=== PATIENT | male | born 1945 ===

== ENCOUNTER 2024-03-22 13:43 | Inpatient (IN) | payer MEDICARE, BC ==
[~2024-03-22] VITALS: Ht 170.2 cm; Wt 73.2 kg
[2024-03-22] MEDS ORDERED: Ondansetron 4 MG/2 ML VIAL IV PRN (15:15)
[2024-03-22] MEDS ORDERED: ASPIRIN 81M81 MG/TA2 PO (15:17)
[2024-03-22] MEDS ORDERED: BUSPAR 30MG30 MG/TAB PO (15:18)
[2024-03-22] MEDS ORDERED: THEO-24 20200 MG/CAP PO (15:19)
[2024-03-22] MEDS ORDERED: ZOCOR 20MG20 MG PO (15:20)
[2024-03-22] MEDS ORDERED: GLUCOPHAGE XR500 M1 PO (15:20)
[2024-03-22] MEDS ORDERED: LIORESAL20 MG PO (15:21)
--- NOTE | 2024-03-22 15:24 | NUR ---
MED REC COMPLETED WITH PAPERWORK PROVIDED FROM [facility], PATIENT REPORTS [facility]
[2024-03-22] MEDS ORDERED: Morphine 4 MG/ML VIAL IV PRN (15:30)
--- NOTE | 2024-03-22 15:55 | NUR ---
PATIENT ARRIVED TO MEDICAL FLOOR AT APPROX 1435. PATIENT IS NOT ALERT NOR ORIENTED, AND SPEECH IS UNCLEAR. INTAKE ASSESSMENT COMPLETE, BUT PATIENT IS POOR HISTORIAN. UNABLE TO TELL THIS RN WHAT MEDICATIONS HE TAKES OR WHY HE WENT TO THE HOSPITAL. NO SKIN ISSUES NOTED. ABDOMEN IS ROUND, AND APPEARS DISTENDED ON THE LEFT SIDE. BS HYPOACTIVE X4 AND COMPLAINS OF PAIN UPON PALPATION. PATIENT CHEWS TOBACCO, AND WILL ASK FOR IT. RN EDUCATED PATIENT THAT TOBACCO IS NOT ALLOWED IN THE FACILITY. PATIENT NPO. IV TO LFA PATENT, CDI. CHANGED INTO YELLOW GOWN, FALL PREC IN PLACE, CAR BLOCKER NOTIFIED. CALL LIGHT WITHIN REACH.
--- NOTE | 2024-03-22 16:01 | NUR ---
THIS RN SPOKE WITH PT/OT ABOUT PATIENT AND ASKED THEM TO EVALUATE PATIENT. AFTER EVAL, THEY STATED PATIENT IS INCONTIENT, A MAX 2 ASSIST, AND UNABLE TO COMPREHEND WHAT THEY ARE ASKING HIM TO DO. PATIENT WILL BE BEDREST AT THIS TIME.
[2024-03-22 16:21] VITALS: BP 152/90; PULSE 78; TEMP 98.1
[2024-03-22 16:26] VITALS: BP_SYST 152
[2024-03-22] MEDS ORDERED: Dextrose 50% Water 25 GM/50 ML SYRINGE IV PRN (16:30)
[2024-03-22] MEDS ORDERED: Glucagon 1 MG VIAL IM PRN (16:30)
[2024-03-22] MEDS ORDERED: Dextrose (Glucose) 15 GM (4 x 3.75 GM) Chewable TABLET PACK PO PRN (16:30)
[2024-03-22] MEDS ORDERED: Pantoprazole 40 MG in NS 10 ML IV SCH (16:32)
--- NOTE | 2024-03-22 16:34 | NUR ---
THIS RN WAS NOTIFIED BY PCT THAT PATIENT IS TRYING TO GET UP TO "GET THE MAN OFF THE END OF HIS BED," AND TELLING THE PCT TO "STICK YOUR HEAD IN THAT." PHYSICIAN AWARE.
[2024-03-22 17:05] LABS: MEAN CELL VOLUME 93 fl (80.0-100.0); MEAN CORPUSCULAR HEMOGLOBIN 31 pg (27-31); MEAN CORPUSCULAR HGB CONC 34 g/dl (33.0-37.0); MEAN PLATELET VOLUME 9.8 fl (7.4-10.4); PLATELET COUNT 369 K/mm3 (130-400); RED BLOOD COUNT 3.82 M/mm3 (4.20-5.60); REDCELL DISTRIBUTION WIDTH-CV 14.5 % (11.5-14.5)
[2024-03-22 17:08] LABS: HEMATOCRIT 35.4 % (42.0-52.0)
[2024-03-22] MEDS ORDERED: NS 1,000 ML IV SCH (17:15)
[2024-03-22 17:23] LABS: ALBUMIN 2.2 g/dL (3.4-4.8); BILIRUBIN,TOTAL 0.7 mg/dL (0.2-1.2); CALCIUM 9.2 mg/dL (8.4-10.2); CREATININE, serum 1.46 mg/dL (0.72-1.25); POTASSIUM 4.4 mEq/L (3.5-4.5); TOTAL PROTEIN 6.3 g/dl (6.2-8.1)
[2024-03-22] MEDS ORDERED: Haloperidol Lactate 5 MG/ML VIAL IV PRN (17:30)
[2024-03-22] MEDS ORDERED: D5W 1,000 ML IV SCH (17:30)
--- NOTE | 2024-03-22 17:51 | NUR ---
Contacted by primary nurse, patient becoming aggitated and aggressive with staff. Patient did get ahold of [employer] LATHE TENDER. Prn Hadol given due to patient aggression to staff
--- NOTE | 2024-03-22 18:14 | NUR ---
PATIENT REMOVED PENIS FROM BRIEF AND WAS FOUND INCONTINENT OF URINE. PCT ASSISTED THIS RN TO PROVIDE HYGEINE. PATIENT BEGAN TO HIT AND PUNCH PCT DURING BED CHANGE. PRN HALDOL ADMINISTERED. BARRIER SPRAY AND CREAM APPLIED TO BUTTOCKS. FALL PREC IN PLACE. CALL LIGHT WITHIN REACH, PATIENT STILL DISORIENTED.
[2024-03-22 18:29] LABS: BAND 17 % (0-10); LYMPHOCYTE 8 % (20.0-51.0); NEUTROPHILS 65 % (42.0-75.2)
--- NOTE | 2024-03-22 19:29 | NUR ---
PT IS IN BED AT THIS TIME. CALL LIGHT IS WITHIN REACH.
[2024-03-22] MEDS ORDERED: Insulin Lispro (HumaLOG) SQ SCH (20:00)
[2024-03-22 20:26] VITALS: BP 166/93; PULSE 116; TEMP 98.6
--- NOTE | 2024-03-22 20:30 | NUR ---
CALLED JOSÉ FLYNN OF [facility]. TOLD TO TAKE TEMP AND SEE IF PT IS IN PAIN. PT HAS HAD PREVIOUS HALIDOL.
[2024-03-22 21:00] VITALS: BP_SYST 157
[2024-03-22] MEDS ORDERED: Heparin 5,000 UNITS/ML 1 ML VIAL SQ SCH (21:00)
[2024-03-22 21:38] VITALS: BP 157/79; PULSE 118
[2024-03-22 23:34] VITALS: BP 165/93; PULSE 118; TEMP 99.2
[2024-03-22] MEDS ORDERED: Metoprolol Tartrate 5 MG/5 ML VIAL IV ONE (23:45)
[2024-03-23] VITALS (15 sets, daily range): BP systolic 128–163; BP diastolic 71–81; PULSE 87–116; TEMP 97.7–101
--- NOTE | 2024-03-23 04:11 | NUR ---
JOSÉ FLYNN NOTIFIED OF TEMP. COVERS TAKEN OFF OF PT AND RECTAL TYLENOL GIVEN PER EMAR. PT PACKED WITH ICE AND COLD CLOTHS ON FOREHEAD AND BEHIND NECK.
--- NOTE | 2024-03-23 05:06 | NUR ---
ASSESSMENT COMPLETED EARLIER. MEDICATIONS WERE ADMINISTERED PER EMAR. SEE OTHER NOTES FOR UPDATES THROUGHOUT NIGHT. CALL LIGHT IS WITHIN REACH.
[2024-03-23 07:33] LABS: HEMOGLOBIN 12.1 g/dl (13.5-18.0); MEAN CELL VOLUME 93 fl (80.0-100.0); MEAN CORPUSCULAR HEMOGLOBIN 31 pg (27-31); MEAN CORPUSCULAR HGB CONC 34 g/dl (33.0-37.0); MEAN PLATELET VOLUME 10.1 fl (7.4-10.4); PLATELET COUNT 367 K/mm3 (130-400); RED BLOOD COUNT 3.86 M/mm3 (4.20-5.60); REDCELL DISTRIBUTION WIDTH-CV 14.7 % (11.5-14.5)
[2024-03-23 07:38] LABS: HEMATOCRIT 35.8 % (42.0-52.0)
[2024-03-23 07:54] LABS: ALBUMIN 2.1 g/dL (3.4-4.8); BILIRUBIN,TOTAL 0.9 mg/dL (0.2-1.2); CALCIUM 8.8 mg/dL (8.4-10.2); CREATININE, serum 1.58 mg/dL (0.72-1.25); POTASSIUM 4.2 mEq/L (3.5-4.5); TOTAL PROTEIN 6.2 g/dl (6.2-8.1)
--- NOTE | 2024-03-23 08:00 | NUR ---
PATIENT IS ORIENTED TO PERSON ONLY, NOTED CONFUSION AND DIFFICULTY UNDERSTANDING HIS MUMBLED SPEECH. SISTER CONFIRMED PATIENT HAS POOR SPEECH THAT IS MUMBLED BUT IS MORE CONFUSED THAN HIS BASELINE. SISTER GIVEN PATIENT STATUS UPDATE AND AWARE THAT PATIENT WILL GO DOWN FOR AN MRI & CT SCAN TODAY WELL POSSIBLE SURGERY LATER TODAY. NPO. ORAL SUCTION PRN. IV FLUIDS & IV ABX INFUSING VIA PUMP INTO LEFT FORARM IV. TACHY HR IN THE LOW 100'S ON TELE. ALL OTHER VSS. OFFICE HELPER REPORTS A FEVER OF 101.0 OVER NIGHT AND INCREASED CONFUSION. AM BS WAS 100, NO SSI REQUIRED. 2 MAX ASSIST. PT/OT/ST CONSULTED. HEAD TO TOE ASSESSMENT COMPLETE. DNR STATUS. SCD'S TO BLE. STUDENT NURSE WORKING WITH PATIENT TODAY, SEE CHARTING. CALL LIGHT IN REACH. BED ALARM ON.
[2024-03-23 08:18] LABS: BAND 18 % (0-10); LYMPHOCYTE 7 % (20.0-51.0); NEUTROPHILS 67 % (42.0-75.2)
[2024-03-23 08:19] LABS: PLATELET ESTIMATE NORMAL (NORMAL); POIKILOCYTOSIS 1+
--- NOTE | 2024-03-23 10:52 | NUR ---
PRN HALDOL GIVEN FOR AGGITATION PRIOR TO MRI/CT SCAN. SEE ORDERS.
--- NOTE | 2024-03-23 11:04 | NUR ---
coffee plantation worker was notified patient has been confused and is difficult to understand when he speaks. SW requested assistance from R1 with assistance obtaining insurance information as patient is listed as self-pay. CURTIS contacted patient's sister, Cadence, P# [phone], to discuss discharge planning and complete assessment. Patient lives in [place], [place] by himself. PCP is Dr. Abad, Pharmacy is [facility]. Cadence reports patient has Medicare, BCBS and [place] for insurance. Cadence reports patient's billfold is at home, so they were unable to provide the insurance information. Cadence explained patient does not use any DME and has been independent with ADLS. Patient has also been independent with transporting himself to and from appointments. CURTIS explained PT,OT and ST would be working with patient and that will give a better idea if patient is going to need rehab prior to returning home. Cadence stated they were understanding that patient may need to go to a group home for rehab and their preference would be [facility]. SW will follow up with Cadence and patient with recommendations. CURTIS contacted patient's PCP office at the [facility]. CURTIS was able to obtain Medicare ID is [id number] and BCBS is [id number]. They did not have the VA information. They also provided penitentiary date is 11/23/2000. SW provide the above information to R1 to add to patient's chart. Discharge plan: Pending PT, OT and ST likely SNF
--- NOTE | 2024-03-23 11:23 | NUR ---
social group worker reviewed PT evaluation stating patient will likely need post acute rehab. SW met with patient and provided Medicare.gov list of options. Patient is hard to understand as he mumbles but when discussing SNF options and notifying him of what Cadence's option would be patient stated "I guess, I don't know where else I would go." SW reviewed a couple of other options but patient was heading down for a scan. CURTIS will fax referral to [facility] once OT and ST evaluations are in the system. Discharge plan: SNF
--- NOTE | 2024-03-23 11:25 | NUR ---
300ml of stacie clear urine per urinal x1. no complaints.
--- NOTE | 2024-03-23 11:40 | NUR ---
PATIENT GOING DOWN TO RADIOLOGY FOR MRI & CT SCAN. PLAN IS FOR SURGERY LATER TODAY. SEE ORDERS.
[2024-03-23] MEDS ORDERED: Iohexol 300 - 100 ML VIAL IV ONE (12:11)
--- NOTE | 2024-03-23 12:21 | NUR ---
PATIENT BACK IN ROOM FROM RADIOLOGY. PATIENT WOULD NOT DRINK THE ORAL CONTRAST BUT DID GET IV CONTRAST. MRI & CT IMAGES DONE.
[2024-03-23] MEDS ORDERED: LR 1,000 ML IV SCH (13:00)
--- NOTE | 2024-03-23 13:25 | NUR ---
PATIENT STILL VERY PHLEGMY, SEEMS UNABLE TO CLEAR HIS OWN THICK ORAL SECRETIONS. SUCTION PRN. ORAL CARES PROVIDED. PATIENT IS A LITTLE RESISTANT TO SOME ORAL CARES BUT ALLOWED STAFF TO USE SWABS & WATER A FEW TIMES & SUCTION. PATIENT STILL NPO FOR PENDING SURGERY. IV FLUIDS INFUSING VIA PUMP. PATIENT RESTING UP IN BED WITH CALL LIGHT IN REACH. AND BED ALARM ON.
--- NOTE | 2024-03-23 14:13 | NUR ---
OBTAINED CONSENT VIA PHONE WITH DIRECTOR AND SECOND WITNESS. CONSENTS ON CHART.
[2024-03-23] MEDS ORDERED: Succinylcholine PF 200 MG/10 ML SYRINGE IV ONE (15:07)
[2024-03-23] MEDS ORDERED: Lidocaine PF 2% (20 MG/ML) 5 ML VIAL ONE ×2 (15:08→15:26)
[2024-03-23] MEDS ORDERED: Rocuronium 50 MG/5 ML Multi-Dose VIAL ONE ×2 (15:08→17:34)
[2024-03-23] MEDS ORDERED: dexAMETHasone 10 MG/ML VIAL ONE (15:24)
--- NOTE | 2024-03-23 15:40 | NUR ---
PATIENT GOING DOWN TO SURGERY. NPO ALL DAY. IV FLUIDS TO GRAVITY. CONSENTS AND TICKET TO RIDE ON CHART. PATIENT GOING DOWN WITH OR STAFF VIA BED, PATIENT NOW OFF FLOOR.
[2024-03-23] MEDS ORDERED: NS 100 ML IV ONE (16:34)
[2024-03-23] MEDS ORDERED: Phenylephrine 10 MG/ML VIAL ONE (16:34)
[2024-03-23] MEDS ORDERED: fentaNYL 50 MCG/ML 2 ML VIAL ONE (17:16)
[2024-03-23] MEDS ORDERED: fentaNYL 100 ML IV SCH (18:30)
--- NOTE | 2024-03-23 18:30 | NUR ---
PATIENT GOING TO ICU POST-OP. CALLED REPORT TO ICU NURSE.
--- NOTE | 2024-03-23 19:00 | NUR ---
THIS NURSE RECIEVED REPORT FROM FREDERICK JACKSON. PATIENT IS SEEN IN BED. PATIENT IS CURRENTLY SEDATED, BUT OPENS HIS EYES TO VOICE. PATIENT HAS 2 PERIPHERAL LINES, LEFT WRIST AND RIGHT WRIST. PROPOFOL IS RUNNING AT 9.1 MLS/HR AND FENTANYL IS RUNNING AT 1.3 MLS/HR INTO THE R WRIST. PATIENT HAS A IVERSON IN PLACE, NO KINKS NOTED, DRAINING APPROPRIATELY AT THIS TIME. PATIENT'S VITAL SIGNS ARE WNL. BED IS IN LOW POSITION, WHEELS LOCKED, BED ALARM ON, AND CALL LIGHT WITHIN THE PATIENT'S REACH.
[2024-03-23 19:08] LABS: CALCIUM 8.4 mg/dL (8.4-10.2); CREATININE, serum 1.57 mg/dL (0.72-1.25); POTASSIUM 4.2 mEq/L (3.5-4.5)
[2024-03-23 21:35] LABS: ARTERIAL BLD GAS O2 SATURATION 98.1 % (92-100); ARTERIAL BLD GAS TCO2 CT 19.8; ARTERIAL BLOOD GAS BASE EXCESS -5.7 (-2-2); ARTERIAL BLOOD GAS HCO3 18.8 meq/L (22-26); ARTERIAL BLOOD GAS PCO2 33.6 mmHg (35-45); ARTERIAL BLOOD GAS PO2 108.2 mmHg (80-100); ARTERIAL BLOOD GAS pH 7.37 (7.35-7.45)
--- NOTE | 2024-03-23 22:07 | NUR ---
RT obtained ABG per order at 2130. After results obtained, this RT decreased the FiO2 to 30% based on the PaO2. Patient tolerated decrease in FiO2.
[2024-03-24] VITALS (69 sets, daily range): BP systolic 100–151; BP diastolic 58–72; PULSE 94–112; TEMP 97.7–99.6; O2SAT 88–100
[2024-03-24 00:51] LABS: CREATININE, serum 1.62 mg/dL (0.72-1.25); POTASSIUM 4.4 mEq/L (3.5-4.5)
[2024-03-24 04:51] LABS: HEMOGLOBIN 11.4 g/dl (13.5-18.0); MEAN CELL VOLUME 93 fl (80.0-100.0); MEAN CORPUSCULAR HEMOGLOBIN 31 pg (27-31); MEAN CORPUSCULAR HGB CONC 34 g/dl (33.0-37.0); MEAN PLATELET VOLUME 10.6 fl (7.4-10.4); PLATELET COUNT 346 K/mm3 (130-400); RED BLOOD COUNT 3.65 M/mm3 (4.20-5.60)
[2024-03-24 05:02] LABS: HEMATOCRIT 33.9 % (42.0-52.0)
[2024-03-24 05:04] LABS: ALBUMIN 1.6 g/dL (3.4-4.8); BILIRUBIN,TOTAL 0.6 mg/dL (0.2-1.2); CALCIUM 7.9 mg/dL (8.4-10.2); CREATININE, serum 1.71 mg/dL (0.72-1.25); POTASSIUM 4.4 mEq/L (3.5-4.5); TOTAL PROTEIN 5.3 g/dl (6.2-8.1)
--- NOTE | 2024-03-24 05:29 | NUR ---
Due to low PaO2 on AM ABG, this RT increased the FiO2 to 35% at this time.
[2024-03-24 06:01] LABS: BAND 11 % (0-10); LYMPHOCYTE 3 % (20.0-51.0); NEUTROPHILS 84 % (42.0-75.2); PLATELET ESTIMATE NORMAL (NORMAL)
[2024-03-24 06:32] LABS: ARTERIAL BLD GAS O2 SATURATION 91.6 % (92-100); ARTERIAL BLD GAS TCO2 CT 20.4; ARTERIAL BLOOD GAS BASE EXCESS -5.3 (-2-2); ARTERIAL BLOOD GAS HCO3 19.4 meq/L (22-26); ARTERIAL BLOOD GAS PO2 63.8 mmHg (80-100); ARTERIAL BLOOD GAS pH 7.36 (7.35-7.45)
[2024-03-24 09:21] LABS: ALBUMIN 1.7 g/dL (3.4-4.8); BILIRUBIN,TOTAL 0.5 mg/dL (0.2-1.2); CALCIUM 8.2 mg/dL (8.4-10.2); CREATININE, serum 1.95 mg/dL (0.72-1.25); POTASSIUM 4.3 mEq/L (3.5-4.5); TOTAL PROTEIN 5.7 g/dl (6.2-8.1)
[2024-03-24] MEDS ORDERED: D5LR 1,000 ML IV SCH (09:30)
--- NOTE | 2024-03-24 09:39 | NUR ---
PT PLACED ON CPAP WEANING TRIAL
[2024-03-24] MEDS ORDERED: D5 1/2 NS 1,000 ML IV SCH (09:45)
[2024-03-24 10:51] LABS: ARTERIAL BLD GAS O2 SATURATION 96.8 % (92-100); ARTERIAL BLD GAS TCO2 CT 20.8; ARTERIAL BLOOD GAS BASE EXCESS -4.5 (-2-2); ARTERIAL BLOOD GAS HCO3 19.7 meq/L (22-26); ARTERIAL BLOOD GAS PCO2 33.9 mmHg (35-45); ARTERIAL BLOOD GAS PO2 90.3 mmHg (80-100); ARTERIAL BLOOD GAS pH 7.38 (7.35-7.45)
--- NOTE | 2024-03-24 12:42 | NUR ---
PT EXTUBATED AND PLACED ON 5LPM OXYMASK
--- NOTE | 2024-03-24 13:25 | NUR ---
Patient extubated at 1237 by RT Deysi. Patient tolerated procedure well, breathing on his own with oxymask at 5 liters o2. Patient is having large amount of secretions. Patient is not tolerating suction well and becomes upset when suction is performed
--- NOTE | 2024-03-24 15:24 | NUR ---
Roofing Laborer attempted to contact Betsey at [facility] and left a message. SW also attempted to contact patient's sister, Cadence and left a message.
--- NOTE | 2024-03-24 15:34 | NUR ---
Railroad Supervisor Of Engines spoke with patient's sister, Cadence to establish next of kin. Patient is and has no children. Patient's living siblings are Cadence, Amanda, and Betsey.
--- NOTE | 2024-03-24 16:57 | NUR ---
PATIENT ANXIOUS AND PULLING AT EQUIPMENT. PRN HALDOL GIVEN
[2024-03-24] MEDS ORDERED: Mag/Al Hydrox/Simeth Susp 30 ML CUP PO PRN (17:30)
[2024-03-24] MEDS ORDERED: LORazepam 2 MG/ML 1 ML VIAL IV PRN (17:30)
[2024-03-24 18:03] LABS: BASO # 0.1 K/mm3 (0.0-0.2); BASO % 0.2 % (0.0-2.0); GRAN # 20.5 K/mm3 (1.4-6.5); GRAN % 92.7 % (42.2-75.2); HEMOGLOBIN 10.6 g/dl (13.5-18.0); LYMPH # 0.5 K/mm3 (1.2-3.4); LYMPH % 2.4 % (20.0-51.0); MEAN CELL VOLUME 94 fl (80.0-100.0); MEAN CORPUSCULAR HEMOGLOBIN 31 pg (27-31); MEAN CORPUSCULAR HGB CONC 33 g/dl (33.0-37.0); MEAN PLATELET VOLUME 10.6 fl (7.4-10.4); MONO # 0.8 K/mm3 (0.1-0.6); MONO % 3.7 % (1.7-9.3); PLATELET COUNT 350 K/mm3 (130-400); RED BLOOD COUNT 3.43 M/mm3 (4.20-5.60); REDCELL DISTRIBUTION WIDTH-CV 14.9 % (11.5-14.5)
[2024-03-24 18:04] LABS: INR 1.5 (0.8-3.0); PROTHROMBIN TIME 16.4 SECONDS (9.7-12.8)
[2024-03-24 18:07] LABS: PARTIAL THROMBOPLASTIN TIME 30.5 SECONDS (26.0-37.0)
[2024-03-24 18:08] LABS: HEMATOCRIT 32.3 % (42.0-52.0)
--- NOTE | 2024-03-24 19:15 | NUR ---
Received report from Reina Diaz RN. Vitals are stable at this time. Pt on oxymask at 5L. Pt is currently sleeping. ABD midline site looks clean, dry and intact. Pt has ABX and IVF's running at this time. Sharif in place with no kinks in tubing. Pt is in bed with bed in low position, bed alarms on and call light within reach. Will continue with pt care.
[2024-03-24 19:41] LABS: ALBUMIN 1.8 g/dL (3.4-4.8); BILIRUBIN,TOTAL 0.4 mg/dL (0.2-1.2); CALCIUM 8.5 mg/dL (8.4-10.2); CREATININE, serum 1.68 mg/dL (0.72-1.25); POTASSIUM 4.3 mEq/L (3.5-4.5); TOTAL PROTEIN 5.7 g/dl (6.2-8.1)
[2024-03-24 21:35] LABS: COLLECTION METHOD CLEAN CATCH
[2024-03-24 21:44] LABS: URINE APPEARANCE CLOUDY (CLEAR/HAZY); URINE BLOOD 2+ (NEGATIVE); URINE COLOR YELLOW (YELLOW); URINE GLUCOSE NEGATIVE (NEGATIVE); URINE KETONE NEGATIVE (NEGATIVE); URINE NITRATE NEGATIVE (NEGATIVE); URINE PROTEIN(semi-quant) 1+ (NEGATIVE); URINE UROBILINOGEN 0.2 E.U/dL (0.2-1.0)
[2024-03-24 21:51] LABS: TRICYCLIC ANTIDEPRESS URINE NEGATIVE (NEGATIVE)
[2024-03-25] VITALS (117 sets, daily range): BP systolic 105–143; BP diastolic 59–114; PULSE 57–123; TEMP 97.3–98.1; O2SAT 91–100
--- NOTE | 2024-03-25 04:05 | NUR ---
Received report from Reina Joyce Patient resting quietly in bed. Remains on 5L oxygen via oxymask, tolerating well. Patient sounds as though he has copious secretions in throat and requires frequent suctioning. Vitals within normal limits. IVF continue according to orders in EMAR. Sharif to dependent drainage.
[2024-03-25 04:38] LABS: HEMOGLOBIN 11.3 g/dl (13.5-18.0); MEAN CORPUSCULAR HEMOGLOBIN 31 pg (27-31); MEAN CORPUSCULAR HGB CONC 32 g/dl (33.0-37.0); MEAN PLATELET VOLUME 10.4 fl (7.4-10.4); PLATELET COUNT 404 K/mm3 (130-400); RED BLOOD COUNT 3.62 M/mm3 (4.20-5.60); REDCELL DISTRIBUTION WIDTH-CV 15.5 % (11.5-14.5)
[2024-03-25 04:44] LABS: HEMATOCRIT 35.7 % (42.0-52.0); MEAN CELL VOLUME 99 fl (80.0-100.0)
[2024-03-25 04:47] LABS: CALCIUM 8.5 mg/dL (8.4-10.2); CREATININE, serum 1.71 mg/dL (0.72-1.25); POTASSIUM 4.5 mEq/L (3.5-4.5)
--- NOTE | 2024-03-25 05:32 | NUR ---
Began titrating patient's oxygen down at 0445; he was 100% on 5L. At this time, 0532, patient is on room air satting 98%.
[2024-03-25] MEDS ORDERED: Multivitamin TAB PO SCH (08:00)
[2024-03-25] MEDS ORDERED: Folic Acid 1 MG TAB PO SCH (09:00)
--- NOTE | 2024-03-25 12:10 | NUR ---
PT IS RESTING IN THE BED. HE DOES OPEN HIS EYES, BUT HIS SPEECH IS A LITTLE GARBELED FROM SECRETIONS. HE IS ABLE TO TELL ME IT IS 2023 AND HOLLY IS THE PRESIDENT AND HIS NAME. HE HAS A NG TUBE TO SUCTION WITH YELLOW/GREEN OUTPUT. HE HAS IVERSON CATHETER WITH YELLOW CLEAR URINE. HE IS ON ROOM AIR. HE HAS MIDLINE DRESSING WITH NO DRAINAGE AT THIS TIME.
--- NOTE | 2024-03-25 14:57 | NUR ---
Kinesiologist faxed clinical updates to [facility].
[2024-03-25 16:07] LABS: HEMOGLOBIN 10.6 g/dl (13.5-18.0)
[2024-03-25 16:08] LABS: HEMATOCRIT 31.7 % (42.0-52.0)
--- NOTE | 2024-03-25 19:45 | NUR ---
PT HAD A BLOODY STOOL DURING REPORT. PT'S GOWN, DRAWSHEET AND CHUX CHANGE. VERO CARE AND IVERSON CARE PERFORMED. PT MUMBLING INCOHERENTLY. PT INSTRUCTED TO NOT PULL AT LINES AND TUBES.
[2024-03-25 22:21] LABS: HEMOGLOBIN 9.3 g/dl (13.5-18.0)
[2024-03-25 22:22] LABS: HEMATOCRIT 28.2 % (42.0-52.0)
[2024-03-26] VITALS (646 sets, daily range): BP systolic 85–146; BP diastolic 52–101; PULSE 87–113; TEMP 97.3–98.8; O2SAT 44–100
[2024-03-26 02:24] LABS: BASO % 0.1 % (0.0-2.0); EOS # 0.1 K/mm3 (0.0-0.7); EOS % 0.5 % (0.0-4.0); GRAN # 12.5 K/mm3 (1.4-6.5); GRAN % 86.9 % (42.2-75.2); LYMPH # 0.9 K/mm3 (1.2-3.4); MEAN CELL VOLUME 96 fl (80.0-100.0); MEAN CORPUSCULAR HGB CONC 33 g/dl (33.0-37.0); MEAN PLATELET VOLUME 10.8 fl (7.4-10.4); MONO # 0.8 K/mm3 (0.1-0.6); MONO % 5.4 % (1.7-9.3); PLATELET COUNT 342 K/mm3 (130-400); RED BLOOD COUNT 3.07 M/mm3 (4.20-5.60); REDCELL DISTRIBUTION WIDTH-CV 14.9 % (11.5-14.5)
[2024-03-26 02:35] LABS: HEMATOCRIT 29.5 % (42.0-52.0); HEMOGLOBIN 9.6 g/dl (13.5-18.0); MEAN CORPUSCULAR HEMOGLOBIN 31 pg (27-31)
[2024-03-26 05:19] LABS: MEAN CELL VOLUME 95 fl (80.0-100.0); MEAN CORPUSCULAR HGB CONC 33 g/dl (33.0-37.0); MEAN PLATELET VOLUME 10.6 fl (7.4-10.4); PLATELET COUNT 358 K/mm3 (130-400); RED BLOOD COUNT 2.88 M/mm3 (4.20-5.60)
[2024-03-26 05:27] LABS: HEMATOCRIT 27.4 % (42.0-52.0); HEMOGLOBIN 8.9 g/dl (13.5-18.0); MEAN CORPUSCULAR HEMOGLOBIN 31 pg (27-31)
[2024-03-26 05:34] LABS: CALCIUM 7.9 mg/dL (8.4-10.2); CREATININE, serum 1.42 mg/dL (0.72-1.25); POTASSIUM 4.2 mEq/L (3.5-4.5)
--- NOTE | 2024-03-26 06:12 | NUR ---
PT REMAINS CONFUSED. HE IS ANSWERING SOME QUESTIONS APPROPRIATELY. HE DOES NOT KNOW PLACE, TIME, SITUATION. PT PULLED OUT HIS NGT. TUBE REPLACE AND CXR OBTAINED. PT KEPT PULLING OFF HIS SCD'S. PT WAS PLACED IN MITTS. BLOODY STOOLS HAVE DECREASED OVERNIGHT. PT MEDICATED EVERY 4 HOURS WITH HALDOL AND MORPHINE. MEDICATION HAD LITTLE EFFECT ON PT. PT DID NOT SLEEP DURING THE NIGHT.
[2024-03-26 10:42] LABS: MAGNESIUM 1.8 mg/dL (1.6-2.6); PHOSPHOROUS 2.9 mg/dL (2.3-4.7)
[2024-03-26] MEDS ORDERED: D5W 1,000 ML IV SCH (11:15)
[2024-03-26 13:26] LABS: HEMATOCRIT 26.7 % (42.0-52.0); HEMOGLOBIN 8.8 g/dl (13.5-18.0)
[2024-03-26] MEDS ORDERED: CALCIUM GLUCONATE 1000 MG IV SCH (16:00)
[2024-03-26] MEDS ORDERED: MAGNESIUM SULFATE IV SCH (16:00)
[2024-03-26] MEDS ORDERED: [UNRECOGNIZED DRUG - OTHER] IV SCH (16:00)
[2024-03-26 17:33] LABS: HEMATOCRIT 28.2 % (42.0-52.0); HEMOGLOBIN 9.4 g/dl (13.5-18.0)
[2024-03-26] MEDS ORDERED: LORazepam 2 MG/ML 1 ML VIAL IV PRN (17:45)
--- NOTE | 2024-03-26 17:53 | NUR ---
PATIENT SCORING 29 ON CIWA ASSESSMENT, LORAZEPAM WAS RE-ORDERED, 4MG WAS ADMINISTERED, PRECEDEX WAS TITRATED TO 0.6 AT THIS TIME. WILL RE-ASSESS IN 15 MINS TO SEE IF PRECEDEX NEEDS TO COME DOWN ANYMORE. AT THE TIME OF TAKINGG THE PRECEDEX DOWN, PATIENT WAS STILL SHOWING SIGNS OF AGITATION, SO DESPITE IT LOOKING LIKE THE PRECEDEX SHOULD NOT HAVE BEEN DECREASED, THE ANTICIPATION OF THE ATIVAN RELAXING THE PATIENT WAS WHAT WARRANTED THE DECESION TO TITRATE DOWN PRECEDEX FROM 0.7 MCG/KG/HR TO 0.6MCG/KG/HR
[2024-03-26] MEDS ORDERED: Insulin Lispro (HumaLOG) SQ SCH (18:00)
--- NOTE | 2024-03-26 18:49 | NUR ---
0800: PATIENT IN BED ALERT, ORIENTEDX3 BUT IS HAVING INAPPROPRIATE SPEECH AT THIS TIME. PATIENT CONSTANTLY MOVING AROUND IN BED AND THROWING LEGS OUT OF BED. PATIENT IS STILL ON CIWA'S BUT HAS BEEN TAKEN OFF OF MEDICATION TO TREAT THE DETOXIFICATION. AFTER SOME DELIBERATION BETWEEN THE INTERDISCIPLINARY TEAM, IT WAS DECIDED TO KEEP PRECEDEX ON AT 0.7, AND CONT TO NOT TREAT THE DETOX. PATIENT MILDLY AGITATED FOR THE MAJORITY OF THE DAY, BUT WAS REDIRECTABLE. 1730: PATIENT BECOMES AGITATED AND NO LONGER REDIRECTABLE, PATIENT TRIES TO BITE OUT LINES, TUBES, MONITORING EQUIPMENT AND MITTS. PATIENT HAVING AUDITORY HALLUCINATIONS, AND IS ATTEMPTING TO SCRATCH AT FACE. PATIENT SCORES 29 ON CIWA ASSESSMENT. HOSPITALIST CONTACTED WITH THIS INFORMATION. SHE GIVES THE TELEPHONE ORDER TO PUT THE ATIVAN BACK ON THE EMAR TO TREAT THE DETOX AGAIN. PATIENT RECEIVES 4MG OF ATIVAN. PRECEDEX IS TITRATED DOWN AT THIS TIME, AND EVENTUALLY IS TITRATED DOWN FROM 0.7MCG/KG/HR TO 0.4MCG/KG/HR. PATIENTS BLOOD PRESSURES HAVE BECOME SOFT BUT MAP REMAINS ABOVE 66. PATIENTS HEART RATE NO LONGER IN THE 120S AND IS IN THE HIGH 90S TO LOW 100S. PATIENT BREATHING IS NORMAL DEPTH, RATE, AND REGULAR RHYTHM. RESPIRS ARE 18/MIN. PATIENT IS SATTING 97% ON ROOM AIR. PATIENT RESPONDS WHEN SPOKEN TO, AND SLEEPS BETWEEN DISTURBS
[2024-03-27] VITALS (235 sets, daily range): BP systolic 106–115; BP diastolic 48–67; PULSE 95–105; TEMP 97.6–98.4; O2SAT 72–100
[2024-03-27 00:16] LABS: CALCIUM 7.9 mg/dL (8.4-10.2); CREATININE, serum 1.31 mg/dL (0.72-1.25); POTASSIUM 3.7 mEq/L (3.5-4.5)
[2024-03-27 04:36] LABS: MEAN CELL VOLUME 95 fl (80.0-100.0); MEAN CORPUSCULAR HGB CONC 32 g/dl (33.0-37.0); MEAN PLATELET VOLUME 10.9 fl (7.4-10.4); PLATELET COUNT 365 K/mm3 (130-400); RED BLOOD COUNT 2.69 M/mm3 (4.20-5.60); REDCELL DISTRIBUTION WIDTH-CV 14.8 % (11.5-14.5)
[2024-03-27 04:37] LABS: HEMATOCRIT 25.6 % (42.0-52.0); HEMOGLOBIN 8.3 g/dl (13.5-18.0); MEAN CORPUSCULAR HEMOGLOBIN 31 pg (27-31)
[2024-03-27 04:54] LABS: CALCIUM 7.8 mg/dL (8.4-10.2); CREATININE, serum 1.3 mg/dL (0.72-1.25); POTASSIUM 3.7 mEq/L (3.5-4.5)
[2024-03-27 05:13] LABS: MAGNESIUM 1.9 mg/dL (1.6-2.6); PHOSPHOROUS 3.1 mg/dL (2.3-4.7)
--- NOTE | 2024-03-27 06:02 | NUR ---
[facility] notified of patient TOD 03/27/24, 0514, #[id number]. Not a candidate for tissue donation. Case sent to [facility]. Awaiting contact for patient disposition.
--- NOTE | 2024-03-27 06:02 | NUR ---
AT 0445 PATIENT PUKLSE INCREASES TO 120/ PATIENT IS SWEATY/ PATIENT WILL NOT RESPOND/ DRAWN CBS AT [phone]/ CALLED PROVIDER AT 0508/ A THAT PATIENT IS UNRESPON RAEGANE HAS RAPID HEART OH LOOK PULSE NOW 55 IGOT TO GO/ CALLED CODE AT 0510/ PROVIDER ARRIVES AT SAME TIME 0510/ ONE DOSE OF ATROPINE ADMINISTERED IV/ PATIENT DNR CALLED 0514/ CALLED SISTER EHSAN DUCRUSTY KAUR SHE MADE ARRANGEMENTS
--- NOTE | 2024-03-27 09:32 | NUR ---
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 All belongings sent with home. Pt left unit at 0915.
== END 2024-03-27 09:15 | disposition expired | DRG 853 ==
LOC: SURG 13:43 → ICU 15:09 → SURG 15:09 → ICU 03-23 18:18
PROVIDERS: Internal Medicine; Internal Medicine Critical Care Medicine; Internal Medicine Pulmonary Disease; Physician Assistant; Surgery; ADMIT Internal Medicine
PROC: 0DTF4ZZ Resection of Right Large Intestine, Percutaneous Endoscopic Approach (ICD-10-PCS; principal; 2024-03-23 14:30)
PROC: 0DJ00ZZ Inspection of Upper Intestinal Tract, Open Approach (ICD-10-PCS; 2024-03-23 14:30)
PROC: 5A1935Z Respiratory Ventilation, Less than 24 Consecutive Hours (ICD-10-PCS; 2024-03-24)
PROC: 02HV33Z Insertion of Infusion Device into Superior Vena Cava, Percutaneous Approach (ICD-10-PCS; 2024-03-24)
DX: A41.9 Sepsis, unspecified organism (principal); K63.1 Perforation of intestine (nontraumatic); E87.0 Hyperosmolality and hypernatremia; N17.9 Acute kidney failure, unspecified; Z66 Do not resuscitate; K66.8 Other specified disorders of peritoneum; J44.9 Chronic obstructive pulmonary disease, unspecified; J61 Pneumoconiosis due to asbestos and other mineral fibers; E78.5 Hyperlipidemia, unspecified; E11.9 Type 2 diabetes mellitus without complications; R47.81 Slurred speech; R41.0 Disorientation, unspecified; E87.8 Other disorders of electrolyte and fluid balance, not elsewhere classified; Z87.891 Personal history of nicotine dependence; Z79.82 Long term (current) use of aspirin; Z79.899 Other long term (current) drug therapy; Z79.84 Long term (current) use of oral hypoglycemic drugs; Z51.5 Encounter for palliative care
CPT/HCPCS: A4314; C1751; J0612; J1100; J1630; J1644; J2060; J2270; J2371; J2470; J2543; J2704; J2795; J3010; J3411; J3475; J7030; J7070; Q9967